=== PATIENT | female | born 1970 | race Caucasian/White ===

== ENCOUNTER 2025-01-27 18:53 | Emergency (ER) | payer SELFPAY ==
[2025-01-27 18:56] VITALS: BP 150/74; PULSE 90; RESP 17; TEMP 36.9; O2SAT 96; BMI 33.8
--- NOTE | 2025-01-27 20:05 | XRR_ITS ---
PROCEDURE INFORMATION: Exam: XR Chest Exam date and time: 01/27/2025 8:07 PM Age: 54 years old Clinical indication: Shortness of breath; Additional info: Fatigue, short of breath TECHNIQUE: Imaging protocol: Radiologic exam of the chest. Views: 1 view. COMPARISON: No relevant prior studies available. FINDINGS: Lungs: Unremarkable. No consolidation. Pleural spaces: Unremarkable. No pleural effusion. No pneumothorax. Heart/Mediastinum: Unremarkable. No cardiomegaly. Bones/joints: Calcific tendinitis left supra spinatus tendon present XR/XR chest 1V portable [id number] IMPRESSION: No acute cardiopulmonary process demonstrated.
[2025-01-27 20:17] LABS: Hematocrit 43.1 % (36-47); Hemoglobin 14.40 g/dL (11.27-16.99); Mean Corpuscular HGB Conc 33.4 g/dL (30-55); Mean Corpuscular Hemoglobin 29.0 pg (27-33); Mean Corpuscular Volume 86.7 fl (85-98); Nucleated Red Blood Cells % 0 %; Platelet Count 274 10^3/cmm (157-399); Red Blood Count 4.97 10^6/uL (3.85-5.65); White Blood Count 9.55 10^3/uL (3.29-11.43)
[2025-01-27 20:38] LABS: Alanine Aminotransferase 22 U/L (0-33); Albumin Level 4.1 g/dL (3.5-5.2); Alkaline Phosphatase 87 U/L (35-105); Anion Gap 18.9 (5-19); Aspartate Amino Transferase 18 U/L (0-32); Blood Urea Nitrogen 16 mg/dL (6-20); Calcium 9.9 mg/dL (8.5-10.5); Carbon Dioxide 24 mmol/L (22-29); Chloride 99 mmol/L (98-107); Creatinine Clr Calc Pharmacy 90.1368; Globulin 3.6 g/dL (1.3-4.6); Glucose 202 mg/dL (65-115); Osmolality Calculated 293 mOsm/kg (285-295); Potassium 3.9 mmol/L (3.5-5.1); Sodium 138 mmol/L (136-145); Total Protein 7.7 g/dL (6.6-8.7)
[2025-01-27 20:56] LABS: Glucose Urine UA 3+ (Normal); Nitrate Urine Negative (Negative)
[2025-01-27 21:00] LABS: Add Urine Microscopic? YES
[2025-01-27 21:21] LABS: Specific Gravity, Urine 1.040 (1.005-1.030)
[2025-01-27 21:22] LABS: UA Slide Review UA Slide Review Perf
[2025-01-27 21:39] VITALS: BP 136/83; PULSE 86; RESP 16; O2SAT 95
--- NOTE | 2025-01-27 21:57 | W.ED.RECABL ---
HPI - Recheck/Abnormal Lab/Rx General: Chief Complaint: Recheck/Abnormal Lab/Rx Stated Complaint: Light Headed\N Time Seen by Provider: 01/27/25 19:30 History of Present Illness: Patient is a 54-year-old female who comes to the ER with lightheadedness, dizziness. This started today. She did have association of some weakness, and shortness of breath. She thought her blood glucose was too high. She does have polydipsia. She states she is borderline diabetic however has never been diagnosed. She is not on any medications. No other concerns. Related Data Previous Rx's ?Medication ?Instructions ?Recorded cephalexin 500 mg capsule 500 mg PO BID 5 days #10 caps 01/27/25 Allergies Allergy/AdvReac Type Severity Reaction Status Date / Time No Known Allergies Allergy Verified 01/27/25 19:06 Review of Systems General: Reports: 10 or more systems reviewed and unremarkable except in HPI and below Const: Reports: malaise; Denies: fever(s) or chills Eyes: Denies: change in vision or blurry vision ENMT: Denies: throat pain, hoarseness, nasal obstruction or post nasal drip Card: Denies: chest pain or palpitations Resp: Denies: dyspnea or non-productive cough GI: Reports: nausea; Denies: abdominal pain or vomiting : Denies: flank pain or difficulty voiding Skin/Breast: Denies: rash or pruritus Neuro: Reports: headache(s), dizziness and vertigo; Denies: numbness in extremities or weakness in extremities Physical Exam Const: COMMON NORMALS: no acute distress, average body habitus and patient oriented x3 HENMT: COMMON NORMALS: normocephalic and atraumatic HEAD & SCALP: normocephalic and atraumatic Eye: COMMON NORMALS: Equal, round and reactive pupils present and EOMs intact bilaterally PUPIL: Yes Equal, round and reactive pupils present Neck/C-Spine: COMMON NORMALS: full ROM and no lymphadenopathy Lymph: LYMPHATIC: no lymphadenopathy noted Chest: COMMONS NORMALS: normal inspection of the chest and normal palpation of entire chest wall Resp: COMMON NORMALS: normal respiratory effort, No retractions and clear to auscultation bilaterally AUSCULTATION: clear to auscultation bilaterally Cardio: COMMON NORMALS: regular rate and regular rhythm RATE: regular rate RHYTHM: regular rhythm GI: COMMON NORMALS: Normal to inspection, nondistended, normoactive bowel sounds present, Soft to palpation, non-tender and No hepatosplenomegaly present PALPATION: Yes Soft to palpation and Yes No hepatosplenomegaly present : COMMON NORMALS: Yes no CVA tenderness BLADDER/KIDNEY EXAM: Yes no CVA tenderness Back/Pelvis: COMMON NORMALS: no CVA tenderness Extremity: COMMON NORMALS: normal to inspection, full ROM and capillary refill normal Neuro: COMMON NORMALS: patient oriented x3 Psych: COMMON NORMALS: mental status grossly normal and Normal thought process present THOUGHT PROCESS: Normal thought process present Course Vital Signs: Vital signs: Vital Signs Temperature 98.4 F 01/27/25 18:56 Pulse Rate 86 01/27/25 22:54 Respiratory Rate 16 01/27/25 22:54 Blood Pressure 133/84 01/27/25 22:54 Pulse Oximetry 93 01/27/25 22:54 Oxygen Delivery Me thod Room Air 01/27/25 21:39 MDM - Recheck/Abnormal Lab/Rx Medical Decision Making Patient is 54-year-old female presents to the ED with lightheadedness, dizziness. She thought her blood glucose was up which it is at 202, however there is no concerning features for honc, no ketones in her urine but trace, 11?20 WBCs and urinalysis. Suspect mild pyuria, however more suspect dehydration. She is not nauseated. She has been encouraged to drink fluids in the ED and doing better. Her COVID/flu is pending, however this would not change her plan of care. Patient be discharged home with cephalexin. Urinalysis is being cultured. All of this explained in layman's terms. Patient is nontoxic well-appearing female. Her COVID and flu are negative. Only thing found on workup is mild pyuria. Will treat as noted. Patient was discharged home as noted above. Medical Records I reviewed the patient's medical records. Lab Data I reviewed the patient's lab results. 01/27/25 20:00 01/27/25 20:00 Radiology Impressions Chest X-Ray 01/27/25 20:05 IMPRESSION: No acute cardiopulmonary process demonstrated. Laboratory Results WBC 9.55 10^3/uL (3.29-11.43) 01/27/25 20:00 RBC 4.97 10^6/uL (3.85-5.65) 01/27/25 20:00 Hgb 14.40 g/dL (11.27-16.99) 01/27/25 20:00 Hct 43.1 % (36-47) 01/27/25 20:00 MCV 86.7 fl (85-98) 01/27/25 20:00 MCH 29.0 pg (27-33) 01/27/25 20: MCHC 33.4 g/dL (30-55) 01/27/25 20:00 RDW 12.5 % (12.1-15.1) 01/27/25 20:00 Plt Count 274 10^3/cmm (157-399) 01/27/25 20:00 MPV 10.8 fL (7.4-10.4) H 01/27/25 20:00 Neut % (Auto) 64.1 % 01/27/25 20:00 Lymph % (Auto) 26.0 % 01/27/25 20:00 [place] % (Auto) 6.6 % 01/27/25 20:00 Eos % (Auto) 2.5 % 01/27/25 20:00 Baso % (Auto) 0.5 % 01/27/25 20:00 Neut # (Auto) 6.12 10^3/uL (1.8-7.7) 01/27/25 20:00 Lymph # (Auto) 2.5 10^3/uL (0.8-4.8) 01/27/25 20:00 [place] # (Auto) 0.6 10^3/uL (0.2-0.9) 01/27/25 20:00 Eos # (Auto) 0.2 10^3/uL (0.0-0.8) 01/27/25 20:00 Baso # (Auto) 0.1 10^3/uL (0.0-0.1) 01/27/25 20:00 Nucleated RBC % (auto) 0 % 01/27/25 20:00 Nucleated RBCs # 0.0 /100WBC 01/27/25 20:00 Sodium 138 mmol/L (136-145) 01/27/25 20:00 Potassium 3.9 mmol/L (3.5-5.1) 01/27/25 20:00 Chloride 99 mmol/L (98-107) 01/27/25 20:00 Carbon Dioxide 24 mmol/L (22-29) 01/27/25 20:00 Anion Gap 18.9 (5-19) 01/27/25 20:00 BUN 16 mg/dL (6-20) 01/27/25 20:00 Creatinine 0.7 mg/dL (0.5-0.9) 01/27/25 20:00 GFR Calculation 86.6 mL/min (90-130) L 01/27/25 20:00 Glucose 202 mg/dL (65-115) H 01/27/25 20:00 POC Glucose 210 mg/dL (70-110) H 01/27/25 19:04 Calculated Osmolality 293 mOsm/kg (285-295) 01/27/25 20:00 Calcium 9.9 mg/dL (8.5-10.5) 01/27/25 20:00 Total Bilirubin 0.3 mg/dL (0.15-1.2) 01/27/25 20:00 AST 18 U/L (0-32) 01/27/25 20:00 ALT 22 U/L (0-33) 01/27/25 20:00 Alkaline Phosphatase 87 U/L (35-105) 01/27/25 20:00 Total Protein 7.7 g/dL (6.6-8.7) 01/27/25 20:00 Albumin 4.1 g/dL (3.5-5.2) 01/27/25 20:00 Globulin 3.6 g/dL (1.3-4.6) 01/27/25 20:00 Urine Color Yellow (Yellow) 01/27/25 19:50 Urine Appearance Clear (CLEAR) 01/27/25 19:50 Urine pH 5.0 (5-7) 01/27/25 19:50 Ur Specific [place] 1.040 (1.005-1.030) H 01/27/25 19:50 Urine Protein Negative (Negative) 01/27/25 19:50 Urine Glucose (UA) 3+ (Normal) H 01/27/25 19:50 Urine Ketones Trace (Negative) 01/27/25 19:50 Urine Blood Negative (Negative) 01/27/25 19:50 Urine Nitrate Negative (Negative) 01/27/25 19:50 Urine Bilirubin Negative (Negative) 01/27/25 19:50 Urine Urobilinogen 0.2 mg/dL (Negative) 01/27/25 19:50 Ur Leukocyte Esterase Negative (Negative) 01/27/25 19:50 Urine RBC 0-2 /hpf (0-2) 01/27/25 19:50 Urine WBC 11-20 /hpf (0-5) H 01/27/25 19:50 Ur Squamous Epith Cells 0-5 /hpf (0-5) 01/27/25 19:50 Amorphous Sediment Not Reportable 01/27/25 19:50 Urine Bacteria Trace /hpf (NONE) 01/27/25 19:50 Hyaline Casts 0-4 /lpf H 01/27/25 19:50 Urine Yeast Trace /hpf 01/27/25 19:50 Influenza A (PCR) Negative (Negative) 01/27/25 22:10 Influenza Type B (PCR) Negative (Negative) 01/27/25 22:10 RSV (PCR) Negative (Negative) 01/27/25 22:10 SARS-CoV-2 (PCR) Negative (Negative) 01/27/25 22:10 All radiology interpretation(s) finalized by discharge Discharge Plan Discharge Patient Disposition: Home Clinical Impression: Pyuria, Hyperglycemia Condition: Stable Prescriptions: New cephalexin 500 mg capsule 500 mg PO BID 5 Days Qty: 10 0RF Discharge Orders: Discharge ED (Routine); Ordered 01/27/25 Ordered By: Priya Rutherford Discharge Diet: Usual diet Discharge Activity: Resume usual activity Patient Instructions: Hyperglycemia, Urinary Tract Infection in Women (ED), Patient Portal & Bruce Instructions Activity Restrictions/Additional Instructions: - Increase your fluid intake. Start with a clear liquid diet, advance to full liquid diet, prior to retaining your regular diet. -Your urine is being cultured. There is minimal amount of white cells which could be a UTI, and the underlying issue, however the culture is pending. In the interim, antibiotics have been sent to your pharmacy. -Given the fact you are on antibiotics, take a daily probiotic or active culture yogurt to avoid infectious diarrhea - Follow-up with your regular doctor for hyperglycemia. Do not eating concentrated sweets. Avoid carbohydrates such as potatoes, fries, tater tots, bread. Thank you for choosing [facility] for your healthcare needs today. You have been screened and evaluated and felt safe for discharge. Health conditions do change or evolve sometimes and as such it is important that you follow up with your Primary Doctor to be re checked, 3-5 days is a general good time frame for follow up. You are always welcome to return to the ED for re assessment if your symptoms are worsening or you have new concerns Print Language: [place] Island[place] Coding Level of Care Code ED Engineering Documentation Specialist for Danny Solis
[2025-01-27 22:00] VITALS: BP 105/69; PULSE 87; RESP 16; O2SAT 93
[2025-01-27] MEDS: cefTRIAXone 1,000 MG in water for injection-sterile 2.1 ML 2.1 MG IM (22:40)
--- NOTE | 2025-01-27 22:46 | ECG_ITS ---
[facility]: 2025-[facility]27 Pat Name: Melita Jade Department: Room: Gender: Female Charter Coordinator: : 1970 Requested By: Monisha Gilman Order Number: [id number] Aguilera MD: Cliff Whittington M.D. Measurements Intervals [place] Rate: 82 P: 29 [place]: 184 QRS: -1 QRSD: 94 T: 20 QT: 388 QTc: 455 Interpretive Statements SINUS RHYTHM POSSIBLE ANTERIOR MYOCARDIAL INFARCTION , PROBABLY OLD [30 ms Q WAVE IN V3/V4, OR R < 0.2 mV IN V4] Compared to ECG 10/06/2017 23:39:19 Myocardial infarct finding now present Electronically Signed On 01-28-2025 16:52:33 CDT by Cliff Whittington M.D. [email or web address]
[2025-01-27 22:54] VITALS: BP 133/84; PULSE 86; RESP 16; O2SAT 93
[2025-01-27 22:57] LABS: Respiratory Syncytial Virus Ce NEGATIVE (Negative); SARS-CoV-2 PCR NEGATIVE (Negative)
== END 2025-01-27 22:52 | disposition home or self-care (01) ==
PROVIDERS: Emergency Medicine; Emergency Provider Physician Assistant
DX: R82.81 Pyuria (principal); R73.9 Hyperglycemia, unspecified
CPT/HCPCS: 36415; 36416; 71045; 80053; 81001; 82010; 82962; 85025; 87086; 87637; 93005; 96372; 99285; J0696

== ENCOUNTER → 2025-02-09 14:57 | Outpatient (BNVA) | payer BC, MEDICAID, SELFPAY | PROVIDERS: Visit Provider Emergency Medicine | DX: R73.9 Hyperglycemia, unspecified (principal) | CPT/HCPCS: 82962 ==

== ENCOUNTER → 2025-02-11 08:34 | Outpatient (BNVA) | payer BC, MEDICAID, SELFPAY | PROVIDERS: PCP Family Medicine; Visit Provider Family Medicine | DX: Z13.6 Encounter for screening for cardiovascular disorders (principal); R73.9 Hyperglycemia, unspecified; Z12.11 Encounter for screening for malignant neoplasm of colon; Z12.31 Encounter for screening mammogram for malignant neoplasm of breast; E66.811 Obesity, class 1; G40.909 Epilepsy, unspecified, not intractable, without status epilepticus; Z12.4 Encounter for screening for malignant neoplasm of cervix | CPT/HCPCS: 80053; 80061; 81000; 81003; 83036; 84439; 84443; 85025 ==

== ENCOUNTER 2025-02-20 08:56 | Outpatient (CLI) | payer BC, MEDICAID, SELFPAY ==
--- NOTE | 2025-02-20 09:00 | MM_ITS ---
WS: [id number] BILATERAL SCREENING DIGITAL TOMOSYNTHESIS MAMMOGRAM WITH CAD HISTORY: screening COMPARISON: None available. Bilateral CC and MLO views with tomosynthesis and synthetic mammography submitted. Computer aided detection analyzed. Breast composition: There are scattered areas of fibroglandular density. No suspicious masses, microcalcifications or architectural distortion. Numerous benign calcifications in each breast. MM/MM scr BI tomosynthesis [id number] IMPRESSION: BI-RADS: 2 - Benign. FOLLOW UP: 1 Year Follow-up
== END 2025-02-20 08:57 | disposition home or self-care (01) ==
LOC: RAD 08:56
PROVIDERS: PCP Family Medicine; Visit Provider Family Medicine
DX: Z12.31 Encounter for screening mammogram for malignant neoplasm of breast (principal); R92.323 Mammographic fibroglandular density, bilateral breasts; R92.1 Mammographic calcification found on diagnostic imaging of breast
CPT/HCPCS: 77063; 77067

== ENCOUNTER 2025-02-24 06:32 | Day surgery (SDC) | payer BC, MEDICAID, SELFPAY ==
[2025-02-24 06:48] VITALS: BP 154/96; PULSE 95; RESP 18; TEMP 35.8; O2SAT 94; BMI 34.2
--- NOTE | 2025-02-24 06:55 | ANES.PREANE2 ---
Pre-Anesthetic Assessment Height/Weight: Height 1.57 m Weight 84.822 kg Temp Pulse Resp BP Pulse Ox O2 Del Method 96.5 F L 95 18 154/96 94 Room Air 02/24/25 06:48 02/24/25 06:48 02/24/25 06:48 02/24/25 06:48 02/24/25 06:48 02/24/25 06:48 Operation Date: 02/24/25 08:00 Proposed Procedures p Colonoscopy 98192 G0121 Z12.11(Not Applicable) - Giovanni Mcmahon MD Familial anesthetic complications: None Was Beta Judd taken within 24 hours: N/A Was Clonidine taken within 24 hours: N/A Last intake: Intake Last Liquid Date 02/23/25 Last Liquid Time 18:00 Last Solid Date 02/22/25 Last Solid Time 18:00 Social No alcohol and No tobacco Exam alert, oriented x 3, clear to auscultation bilaterally and regular rate & rhythm Airway Dentition: other (missing) Metabolic Diabetes Mellitus Anesthetic Plan ASA status: 2 Anesthesia: MAC Risk of > 500 ml blood loss (7ml/kg in children): No Medications/Allergies Home Medications ?Medication ?Instructions ?Recorded ?Confirmed ?Last Taken ?Type levetiracetam 500 mg tablet 500 mg PO BID #180 tabs 02/11/25 02/19/25 02/22/25 Rx (Keppra) glipizide 5 mg tablet, extended 5 mg PO DAILY #30 tabs 02/12/25 02/19/25 02/22/25 Rx release 24 hr Allergies Allergy/AdvReac Type Severity Reaction Status Date / Time No Known Allergies Allergy Verified 02/11/25 07:48 [facility] Anesthesia Medical History Type 2 diabetes mellitus Obesity, Class I, BMI 30-34.9 Elevated random blood glucose level Epilepsy Surgical History Hx of cholecystectomy Hx of appendectomy Family History (Updated 02/19/25 @ 09:40 by LEONORA Gomez) Father Diabetes Mother Diabetes Sister Colon cancer Social History Smoking and tobacco/nicotine status: former use of tobacco/nicotine Alcohol intake: former Year of sobriety/quit date alcohol: 2013 Substance/Drug Use: never
--- NOTE | 2025-02-24 07:40 | ANES.PREANE2 ---
Pre-Anesthetic Assessment Height/Weight: Height 1.57 m Weight 84.822 kg Temp Pulse Resp BP Pulse Ox O2 Del Method 96.5 F L 95 18 154/96 94 Room Air 02/24/25 06:48 02/24/25 06:48 02/24/25 06:48 02/24/25 06:48 02/24/25 06:48 02/24/25 06:48 Operation Date: 02/24/25 08:00 Proposed Procedures p Colonoscopy 08750 G0121 Z12.11(Not Applicable) - Giovanni Mcmahon MD Familial anesthetic complications: none Was Beta Judd taken within 24 hours: N/A Was Clonidine taken within 24 hours: N/A Last intake: Intake Last Liquid Date 02/23/25 Last Liquid Time 18:00 Last Solid Date 02/22/25 Last Solid Time 18:00 Social No alcohol and No tobacco Exam alert, oriented x 3, clear to auscultation bilaterally and regular rate & rhythm Metabolic Diabetes Mellitus Neuropsych Seizure Anesthetic Plan ASA status: 3 Anesthesia: MAC Risk of > 500 ml blood loss (7ml/kg in children): No Medications/Allergies Home Medications ?Medication ?Instructions ?Recorded ?Confirmed ?Last Taken ?Type levetiracetam 500 mg tablet 500 mg PO BID #180 tabs 02/11/25 02/19/25 02/22/25 Rx (Keppra) glipizide 5 mg tablet, extended 5 mg PO DAILY #30 tabs 02/12/25 02/19/25 02/22/25 Rx release 24 hr Allergies Allergy/AdvReac Type Severity Reaction Status Date / Time No Known Allergies Allergy Verified 02/11/25 07:48 Current Medications Generic Name Dose Route Start Last Admin Trade Name Freq PRN Reason Stop Dose Admin Sodium Chloride 1,000 mls @ 15 mls/hr 02/24/25 06:36 02/24/25 07:09 Sodium Chloride 0.9% IV 02/25/25 06:35 15 mls/hr .Q24H PRN Administration COLONOSCOPY FLUIDS PFSH Anesthesia Medical History Type 2 diabetes mellitus Obesity, Class I, BMI 30-34.9 Elevated random blood glucose level Epilepsy Surgical History Hx of cholecystectomy Hx of appendectomy Family History (Updated 02/19/25 @ 09:40 by LEONORA Gomez) Father Diabetes Mother Diabetes Sister Colon cancer Social History Smoking and tobacco/nicotine status: former use of tobacco/nicotine Alcohol intake: former Year of sobriety/quit date alcohol: 2012 Substance/Drug Use: never
--- NOTE | 2025-02-24 07:50 | W.PM.OPSUD ---
Surgery/Procedure H&P Update DATE OF PROCEDURE: February 24, 2025 DATE H&P PERFORMED: 02/19/25 H&P UPDATE INFORMATION: I have reviewed H&P completed within last 30 days, I have examined patient prior to procedure, No changes to prior documentation and Risks and benefits of the procedure reviewed PLANNED PROCEDURE: Operation Date: 02/24/25 08:00 Proposed Procedures p Colonoscopy 82824 G0121 Z12.11(Not Applicable) - Giovanni Mcmahon MD
[2025-02-24 08:13] VITALS: BP 93/62; PULSE 75; RESP 16; TEMP 36.2; O2SAT 96
[2025-02-24 08:25] VITALS: BP 106/77; PULSE 78; RESP 16; O2SAT 95
--- NOTE | 2025-02-24 08:50 | ANE.PACU2 ---
Inpatient post-anesthesia follow up: Airway intact: Yes Vital signs: Temperature 97.1 F Pulse Rate 78 Respiratory Rate 16 Blood Pressure 106/77 Pulse Oximetry 95 Oxygen Delivery Me thod Room Air Oxygen Flow Rate Fraction of Inspir ed Oxygen Hydration adequate: Yes Nausea and vomiting: No Pain level: 1 Mental status: Baseline
== END 2025-02-24 08:50 | disposition home or self-care (01) ==
PROVIDERS: PCP Family Medicine; Visit Provider Student in an Organized Health Care Education/Training Program
PROC: 0DJD8ZZ Inspection of Lower Intestinal Tract, Via Natural or Artificial Opening Endoscopic (ICD-10-PCS; CPT 45378; principal; 2025-02-24 08:00)
DX: Z12.11 Encounter for screening for malignant neoplasm of colon (principal); K57.30 Diverticulosis of large intestine without perforation or abscess without bleeding; E11.9 Type 2 diabetes mellitus without complications; E66.9 Obesity, unspecified; Z68.34 Body mass index [BMI] 34.0-34.9, adult; G40.909 Epilepsy, unspecified, not intractable, without status epilepticus; Z87.891 Personal history of nicotine dependence; Z80.0 Family history of malignant neoplasm of digestive organs
CPT/HCPCS: 36416; 45378; 82962; J2704; J7030

== ENCOUNTER → 2025-02-25 10:24 | Outpatient (BNVA) | payer BC, MEDICAID, SELFPAY | PROVIDERS: PCP Family Medicine; Visit Provider Family Medicine | DX: Z12.4 Encounter for screening for malignant neoplasm of cervix (principal) | CPT/HCPCS: 87624 ==